=== PATIENT | male | born 1975 | race Caucasian/White ===

== ENCOUNTER 2017-01-06 17:55 | Emergency (ER) | payer OTHER ==
[~2017-01-06] VITALS: Ht 182.9 cm; Wt 95.0 kg
[2017-01-06 18:33] LABS: HEMATOCRIT 40.5 % (38.0-50.0); MCH 30.1 PG (29.0-34.0); MCHC 34.1 G/DL (30.0-36.0); MCV 88.2 FL (86-99); PLATELET COUNT 268 K/uL (156-360); RBC DIS.WIDTH-CV 12.5 % (11.8-14.6); RBC DIS.WIDTH-SD 40.4 % (39-53); RED BLOOD COUNT 4.59 M/uL (4.00-5.50); WHITE BLOOD COUNT 6.8 K/uL (4.1-10.2)
[2017-01-06] MEDS ORDERED: NEURONTIN800 MG PO (18:36)
[2017-01-06] MEDS ORDERED: BACLOFEN10 MG PO (18:36)
[2017-01-06] MEDS ORDERED: ZOLOFT100 MG PO (18:36)
[2017-01-06] MEDS ORDERED: BIAXIN500 MG PO (18:37)
[2017-01-06] MEDS ORDERED: INDERAL20 MG PO (18:37)
[2017-01-06] MEDS ORDERED: HALCION0.25 MG PO (18:37)
[2017-01-06] MEDS ORDERED: HYCODAN SYRUP480 ML PO (18:38)
[2017-01-06 18:40] LABS: CHLORIDE 101 mEq/L (99-109); POTASSIUM 3.7 mEq/L (3.7-5.4); SODIUM 140 mEq/L (136-147)
[2017-01-06 18:42] LABS: GLUCOSE 125 mg/dL (70-99)
[2017-01-06 18:43] LABS: ANION GAP 10 MEQ/L (2-14)
[2017-01-06 18:46] LABS: GFR ESTIMATE (CALCULATED) > 59 mL/min/
[2017-01-06 18:47] LABS: UREA NITROGEN (BUN) 13 mg/dL (9-23)
[2017-01-06 20:12] VITALS: BP 102/63
== END 2017-01-06 20:16 | disposition home or self-care (01) ==
LOC: EME 17:55
PROVIDERS: Emergency Medicine
DX: B34.9 Viral infection, unspecified (principal); F17.200 Nicotine dependence, unspecified, uncomplicated; Z88.6 Allergy status to analgesic agent; Z88.2 Allergy status to sulfonamides
CPT/HCPCS: 70450; 70486; 80048; 85027; 99281; 99285; J1885; J7030

== ENCOUNTER 2017-01-07 11:49 | Observation (INO) | payer OTHER ==
[~2017-01-07] VITALS: Ht 182.9 cm; Wt 103.6 kg
[~2017-01-07 11:49] MED LIST: BACLOFEN10 MG PO; BIAXIN500 MG PO; HALCION0.25 MG PO; HYCODAN SYRUP480 ML PO; INDERAL20 MG PO; NEURONTIN800 MG PO; ZOLOFT100 MG PO
[2017-01-07 12:31] LABS: HEMATOCRIT 40.6 % (38.0-50.0); MCV 88.3 FL (86-99); MEAN PLAT.VOLUME 9.4 uM^3 (9.0-12.4); PLATELET COUNT 269 K/uL (156-360); RBC DIS.WIDTH-CV 12.4 % (11.8-14.6); RBC DIS.WIDTH-SD 40.2 % (39-53); WHITE BLOOD COUNT 5.1 K/uL (4.1-10.2)
[2017-01-07 12:41] LABS: CHLORIDE 107 mEq/L (99-109); SODIUM 141 mEq/L (136-147)
[2017-01-07 12:42] LABS: GLUCOSE 114 mg/dL (70-99)
[2017-01-07 12:44] LABS: ANION GAP 8 MEQ/L (2-14)
[2017-01-07 12:46] LABS: GFR ESTIMATE (CALCULATED) > 59 mL/min/
[2017-01-07 12:47] LABS: UREA NITROGEN (BUN) 8 mg/dL (9-23)
[2017-01-07 13:43] LABS: ADD MIUA? YES; BILIRUBIN NEGATIVE; BLOOD SMALL; COLOR STRAW ((YELLOW)); GLUCOSE (STRIP) NEGATIVE; KETONES NEGATIVE; LEUKOCYTES NEGATIVE; NITRITE NEGATIVE; PROTEIN (STRIP) NEGATIVE; SPECIFIC GRAVITY 1.006 (1.000-1.030); UROBILINOGEN 0.2 MG/DL (0.2-1.0)
[2017-01-07 14:10] LABS: BACTERIA NONE SEEN /HPF; EPITHELIAL CELLS NONE SEEN /HPF; MUCUS NONE SEEN /LPF; RED BLOOD CELLS 0-5 /HPF (0-5); UCUL ADDED? NO; WHITE BLOOD CELLS 0-5 /HPF (0-5)
[2017-01-07 15:39] LABS: APPEARANCE CLEAR/COLORLESS; RED CELL AREA COUNTED 18; RED CELL COUNT 2 /MM^3 (0-1); RED CELL DILUTION 1; WBC AREA COUNTED 18; WBC DILUTION 1; WHITE CELL COUNT 3 /MM^3 (0-5); WHITE CELL RAW COUNT 5
[2017-01-07 16:11] LABS: CSF EOSINOPHILS 0 % (0-25); MONO RAW COUNT 34; MONONUCLEAR WBC'S 100 % (50-90); POLYNUCLEAR WBC'S 0 % (0-3)
[2017-01-07 18:35] LABS: AMPHETAMINES QUANT VALUE 0 NG/ML; BARBITUATES QUANT VALUE 0 NG/ML; BENZODIAZEPINES, URINE SCREEN POSITIVE (200 ng/mL); MARIJUANA QUANT VALUE 0 NG/ML; PHENCYCLIDINE QUANT VALUE 0 NG/ML
[2017-01-07 21:55] LABS: Estimated Average Glucose 117 mg/dL (70-123); HEMOGLOBIN A1c (GLYCOHEMOGLOB) 5.7 % HGB (Below 5.7)
[2017-01-07 22:13] LABS: HDL CHOLESTEROL 36 MG/DL (Desirable>=40); LDL CHOLESTEROL 119 mg/dL (Desirable<100); NON-HDL CHOLESTEROL 153 mg/dL (Desirable<160); TOTAL CHOLESTEROL 189 mg/dL (Desirable<200); TRIGLYCERIDES 168 MG/DL (Normal: <150)
[2017-01-07 23:10] VITALS: BP 120/72
[2017-01-08 03:43] VITALS: BP 112/66
[2017-01-08 05:23] LABS: HEMATOCRIT 37.8 % (38.0-50.0); MCH 31.4 PG (29.0-34.0); MCHC 35.2 G/DL (30.0-36.0); MCV 89.2 FL (86-99); MEAN PLAT.VOLUME 9.9 uM^3 (9.0-12.4); PLATELET COUNT 253 K/uL (156-360); RBC DIS.WIDTH-CV 12.6 % (11.8-14.6); RBC DIS.WIDTH-SD 41.3 % (39-53); RED BLOOD COUNT 4.24 M/uL (4.00-5.50); WHITE BLOOD COUNT 5.8 K/uL (4.1-10.2)
[2017-01-08 07:11] VITALS: BP 135/83
[2017-01-08 11:37] VITALS: BP 136/96
[2017-01-08 14:31] VITALS: BP 134/85
[2017-01-08 19:24] VITALS: BP 151/91
[2017-01-08 23:06] VITALS: BP 158/94
[2017-01-09 00:02] VITALS: BP 141/66
[2017-01-09 04:09] VITALS: BP 116/74
[2017-01-09 08:50] VITALS: BP 131/84
[2017-01-09 15:57] VITALS: BP 158/91
[2017-01-09 19:22] VITALS: BP 163/88
[2017-01-10] VITALS: BP 162/59
[2017-01-10 03:59] VITALS: BP 135/64
[2017-01-10 08:06] VITALS: BP 115/74
== END 2017-01-10 10:47 | disposition home or self-care (01) ==
LOC: EME 11:49 → 4EAST 21:01 → EDOF 21:01 → 4EAST 23:10 → 5WEST 01-08 22:39
PROVIDERS: Emergency Medicine; Hospitalist
PROC: 009U3ZX Drainage of Spinal Canal, Percutaneous Approach, Diagnostic (ICD-10-PCS; principal; 2017-01-07)
DX: G93.40 Encephalopathy, unspecified (principal); G89.29 Other chronic pain; M54.9 Dorsalgia, unspecified; F17.200 Nicotine dependence, unspecified, uncomplicated; R42 Dizziness and giddiness; M79.7 Fibromyalgia; F11.20 Opioid dependence, uncomplicated
CPT/HCPCS: 70551; 71020; 80048; 80061; 80306 90; 81003; 82945; 83036; 84157; 85027; 87070; 87205; 89051; 93005; 99281; 99285; G0378

== ENCOUNTER → 2017-02-18 | Outpatient (CLI) | payer OTHER | END | disposition home or self-care (01) | LOC: EEG 09:25 | DX: R41.0 Disorientation, unspecified (principal) | CPT/HCPCS: 95954 ==